=== PATIENT | female | born 2000 | race Caucasian/White ===

== ENCOUNTER 2024-05-06 06:19 | Outpatient (CLI) | payer BC ==
[~2024-05-06] VITALS: Ht 160 cm; Wt 65.0 kg
[~2024-05-06 06:19] MED LIST: MOTRIN 800800 MG/TAB PO; PERCOCET 325 MG1 TA2 PO
[2024-05-06] MEDS ORDERED: PRENATAL TABLET PO (06:41)
[2024-05-06] MEDS ORDERED: PRILOTC PO (06:41)
[2024-05-06] MEDS ORDERED: LR 1,000 ML IV PRN (06:45)
[2024-05-06 07:00] VITALS: BP 128/85; PULSE 80; TEMP 98.3
--- NOTE | 2024-05-06 07:00 | NUR ---
0625- Pt arrives on unit ambultory with spouse. Complains of contractions since yesterday around 1500. Pt complains of tightness, pelvic pressure with UCs. Reports cramping with some but not all. Pt denies LOF. Reports brown spotting from being checked in office on Saturday05/04/24. EFM and TOCO on and tracing well, O2 sat monitor on and tracing maternal HR. VSS. Assessment completed. POC discussed and questions answered.
[2024-05-06 07:08] VITALS: PULSE 74
--- NOTE | 2024-05-06 07:08 | NUR ---
0708- [facility] and TOCO off, Pt up to void. After, Pt requests to walk in hallway. Precautions given and Pt/spouse verbalize understanding.
--- NOTE | 2024-05-06 07:33 | NUR ---
1034- Pt back to room, sitting on side of bed. EFM and TOCO on, adjusted by this RN to tracing. Pt requests BB. 0744- Pt assisted onto ball. Plan to do vaginal exam in approx 10 min.
--- NOTE | 2024-05-06 08:00 | NUR ---
0749- Pt into bed for repeat vaginal exam. SVE unchanged. Discussed need to call Dr Vaughan, questions answered.
[2024-05-06] MEDS ORDERED: Acetaminophen 500 MG TAB PO ONE (08:15)
[2024-05-06 09:00] VITALS: BP 122/85; PULSE 85
--- NOTE | 2024-05-06 09:30 | NUR ---
[facility] not printing paperwork correctly, work order placed by staff. Discussed labor precautions, when to return to hospital, when to call with questions. Pt verbalizes understanding and denies questions. Pt ambulates off unit, with spouse, independently.
== END 2024-05-06 09:30 | disposition home or self-care (01) ==
LOC: LDRO 06:19
DX: Z34.93 Encounter for supervision of normal pregnancy, unspecified, third trimester (principal); Z3A.49 Greater than 42 weeks gestation of pregnancy

== ENCOUNTER 2024-05-07 09:14 | Outpatient (CLI) | payer BC ==
[~2024-05-07] VITALS: Ht 160 cm; Wt 65.0 kg
[2024-05-07 08:40] VITALS: BP 121/79; PULSE 89; TEMP 97.8
[~2024-05-07 09:14] MED LIST changes: +PRENATAL TABLET PO; +PRILOTC PO
--- NOTE | 2024-05-07 09:15 | NUR ---
PT AMBULATORY TO UNIT WITH SPOUSE. REPORTS CTX Q2-4 MINUTES APART, POSITIVE MOVEMENT, THOUGHT A TRICKLE OF FLUID THIS MORNING BUT HAS NOT FELT SINCE, NO VAGINAL BLEEDING. SVE AT THIS TIME /0. AMNITRACE NEGATIVE.
--- NOTE | 2024-05-07 09:30 | NUR ---
DISCUSSED IN DEPTH EARLY LABOR VS LABOR, RELAXATION TECHNIQUES, COMFORT MEASURES, WHEN TO RETURN TO HOSPITAL. PT VOICES UNDERSTANDING. DC HOME.
[2024-05-07] MEDS ORDERED: LR 1,000 ML IV PRN (09:45)
== END 2024-05-07 09:45 | disposition home or self-care (01) ==
LOC: LDRO 09:14
DX: Z34.83 Encounter for supervision of other normal pregnancy, third trimester (principal); Z3A.39 39 weeks gestation of pregnancy

== ENCOUNTER 2024-05-12 03:00 | Inpatient (IN) | payer BC ==
[2024-05-12] VITALS (23 sets, daily range): BP systolic 107–155; BP diastolic 62–94; PULSE 16–102; TEMP 97.9–98.6
[~2024-05-12] VITALS: Ht 160 cm; Wt 64.5 kg
--- NOTE | 2024-05-12 03:09 | NUR ---
Presents to L&D per wheelchair, visibly uncomfortable, breathing through contractions, accompanied by significant other.
[2024-05-12] MEDS ORDERED: LR 1,000 ML IV SCH (03:30)
[2024-05-12 03:36] LABS: BASO # 0.1 K/mm3 (0.0-0.2); BASO % 0.3 % (0.0-2.0); EOS # 0.1 K/mm3 (0.0-0.7); EOS % 0.8 % (0.0-4.0); GRAN # 10.6 K/mm3 (1.4-6.5); GRAN % 70.2 % (42.2-75.2); HEMOGLOBIN 11.4 g/dl (12.5-16.0); LYMPH # 3.4 K/mm3 (1.2-3.4); LYMPH % 22.3 % (20.0-51.0); MEAN CELL VOLUME 83 fl (80.0-100.0); MEAN CORPUSCULAR HEMOGLOBIN 27 pg (27-31); MEAN CORPUSCULAR HGB CONC 32 g/dl (33.0-37.0); MEAN PLATELET VOLUME 12.1 fl (7.4-10.4); MONO # 0.9 K/mm3 (0.1-0.6); MONO % 6.1 % (1.7-9.3); PLATELET COUNT 214 K/mm3 (130-400); RED BLOOD COUNT 4.29 M/mm3 (4.10-5.30); REDCELL DISTRIBUTION WIDTH-CV 15.2 % (11.5-14.5)
[2024-05-12 03:38] LABS: HEMATOCRIT 35.5 % (37.0-47.0)
[2024-05-12] MEDS ORDERED: ROPivacaine PF 0.2% 200 ML IV ONE (03:39)
--- NOTE | 2024-05-12 03:40 | NUR ---
Sitting upright at side of bed, bent over at waist. Difficulty tracing FHT while in this position, hand holding US.
--- NOTE | 2024-05-12 03:58 | NUR ---
Test dose administered by [employer]ELOPER. No adverse reactions noted. Tolerates procedure well.
[2024-05-12] MEDS ORDERED: diphenhydrAMINE 50 MG/ML 1 ML VIAL IV PRN (04:15)
[2024-05-12] MEDS ORDERED: Ondansetron 4 MG/2 ML VIAL IV PRN (04:15)
[2024-05-12] MEDS ORDERED: diphenhydrAMINE 25 MG CAP PO PRN (04:15)
[2024-05-12] MEDS ORDERED: ePHEDrine 50 MG/10 ML VIAL IV PRN (04:15)
[2024-05-12] MEDS ORDERED: Naloxone 0.4 MG/ML VIAL IV PRN ×2 (04:15→10:15)
--- NOTE | 2024-05-12 06:30 | NUR ---
THIS RN ASSISTS PT CHANGE IN POSITION, DIFFICULT TO TRACE FHR, PT VS STABLE, AWAKE AND ALERT X3, PT REPORTS FEELING PRESSURE ON HER LEFT LOWER ABDOMEN. PT POSITION CHANGED TO LEFT LATERAL WITH RIGHT LEG IN STIRRUP. 0635 PT REPORTS BEING UMCOMFORTABLE, POSITION CHANGED TO RAKAN/CHAIR. PT REPORTS STILL FEELING PRESSURE ON HER LEFT LOWER ABDOMEN AND HIP BUT "MORE BEARABLE NOW." EFM CAT 1, PT VS STABLE
--- NOTE | 2024-05-12 07:30 | NUR ---
[id number] UNABLE TO TRACE PT VS DUE TO PT BODY SHAKES, THIS RN REMAINS AT PT BEDSIDE DURING THIS TIME. PT AWAKE AND ALERT X3, PT REPORTS NOT FEELING DISSY OR NAUSEOUS, JUST PRESSURE FROM CONTRACTIONS. PT SPOUSE SUPPORTIVE AT BEDSIDE.
--- NOTE | 2024-05-12 08:53 | NUR ---
0730 SVE 10/100/+1 PER PCR.DABBET, EFM CAT 1. , GEM SETTER DR, AND NOTIFIED OF PT COMPLETE EXAM. PER ORDERS, PT CAN LABOR DOWN AND LET INFANT PASSIVELY DECEND. PT VERBALLY UNDERSTANDING AND COACHED THROUGH BREATHING WITH CONTRACTIONS. PT AND PT SPOUSE VERBALLY UNDERSTANDING OF LABOR PLANS. PT AWAKE AND ALERT X3, PT REPORTS FEELING PRESSURE WITH CONTRACTIONS BUT NO PAIN, PT SHAKING AND DIFFICULT TO TRACE VS. THIS RN REMAINS WITH PT AT BEDSIDE. 0802 AT PT BEDSIDE FOR SVE 10/100/+2, ORDERS TO CONTINUE TO LET INFANT PASSIVELY DECEND AND DELAY PUSHING CONTINUED, NOTIFIED. ROOM SET FOR DELIVERY AND NURSERY NURSE AND CHARGE NURSE NOTIFIED. 0842 AT PT BEDSIDE, BED SET FOR DELIVERY, NURSERY AND CHARGE NURSE AT PT BEDSIDE FOR DELIVERY. PT BEGINS PUSHING EFFECTIVELY, EFM CAT 1, PT AWAKE AND ALERT X3, UNABLE TO TRACE PT VS DUE TO PT SHAKING AND MOVEMENT. THIS RN REMAINS AT PT BEDSIDE. 0853 OF VIABLE FEMALE INFANT PER , CORD CLAMPED AND CUT PER PT SPOUSE, PLACED ON MATERNAL CHEST AND BABY CARE ASSUMED OVER TO NURSERY NURSE. 0856 OF PLACENTA PER , 2ND DEGREE TEAR AND RIGHT LATERAL LABIAL LACERATION REPAIR BEGUN. PT AWAKE AND ALERT X3, DIFFICULT TO TRACE PT VS DUE TO SHAKING AND PT MOVEMENT. PITOCIN BEGAN, FUNDUS FIRM AT UMBILICUS, SMALL AMOUNT OF LOCHIA, NO CLOTS. PT NOT REPORTING PAIN 0910 PT ROOM CLEANED AFTER DELIVERY, PT REPOSITIONED AND ICE PACK PAD PLACED ON PT PERINEUM, FUNDUS FIRM AT UMBILICUS, SCANT LOCHIA, NO CLOTS. PT AWAKE AND ALERT X3, SPOUSE SUPPORTIVE AT BEDSIDE. PT REPORTS FEELING "CRAMPS" BUT DENIES PAIN.
[2024-05-12] MEDS ORDERED: Magnes Hydrox (MOM) 80 MG/ML 30 ML CUP PO PRN (09:45)
[2024-05-12] MEDS ORDERED: Loratadine 10 MG TAB PO PRN (09:45)
[2024-05-12] MEDS ORDERED: Acetaminophen 500 MG TAB PO SCH (10:15)
[2024-05-12] MEDS ORDERED: Witch Hazel 50% Pads Bulk TUB TP PRN (10:15)
[2024-05-12] MEDS ORDERED: Measles/Mumps/Rubella Virus Vaccine Live w Diluent 0.5 ML VIAL SQ SCH (10:15)
[2024-05-12] MEDS ORDERED: Phenylephrine/Mineral Oil/Petrolatum 57 GM TUBE RC PRN (10:15)
[2024-05-12] MEDS ORDERED: oxyCODONE 5 MG TAB PO PRN (10:15)
[2024-05-12] MEDS ORDERED: Mag/Al Hydrox/Simeth Susp 30 ML CUP PO PRN (10:15)
[2024-05-12] MEDS ORDERED: Ibuprofen 800 MG TAB PO SCH (10:15)
--- NOTE | 2024-05-12 12:15 | NUR ---
1200 PT ABLE TO BILATERALLY LIFT LEGS OFF BED IN LABOR AND DELIVERY ROOM, PT ALSO REQUESTING TO BE MOVED TO UNIT. PT VS STABLE, FUNDUS FIRM AT UMBILICUS, SCANT LOCHIA, NO CLOTS. THIS RN ASSISTS PT TO TURN AND DANGLE LEGS AT EDGE OF BED. PT REPORTS NOT FEELING DISSY OR NAUSEOUS AND STEADY WHILE DANGLING. THIS RN THEN REMOVES CAPPED EPIDURAL CATHETER, TIP IN TACT AND NO ABNORMAL VISUAL SIGNS, PT REPORTS "FEELING GOOD." PT THEN ASSISTED ON [place] STEADY TO BATHROOM, PT VOIDED AND CLEANED WITH NEW GOWN. PT REPORTS NOT FEELING DISSY OR NAUSEOUS, AWAKE AND ALERT X3. SCANT LOCHIA DURING TRANSFER TO BATHROOM, NO CLOTS, FUNDUS FIRM AT UMBILICUS. 1215 PT TRANSFERED TO ROOM VIA SARASTEADY, PLACED IN BED. PT SPOUSE FOLLOWS WITH IN CRIB DURING TRANSFER. PT REPORTS "SOME DISCOMFORT BUT NOT HORRIBLE," AT 3/10 PAIN LEVEL. PT REPOSITIONED COMFORTABLY AND THIS RN ORIENTS PT AND PT SPOUSE TO ROOM AND EDUCATION PACKET. PLAN OF CARE DISCUSSED AND PT AND SPOUSE VERBALLY UNDERSTANDING. PT VS STABLE, FUNDUS FIRM AT UMBILICUS, SCANT LOCHIA, NO CLOTS. PT AWAKE AND ALERT X3.
[2024-05-12] MEDS ORDERED: Sennosides/Docusate 8.6-50 MG TAB PO SCH (17:00)
[2024-05-12] MEDS ORDERED: Rho(D) Imm Globulin 1,500 UNITS (300 MCG)/2 ML SYRINGE IV\\IM SCH (18:00)
[2024-05-12] MEDS ORDERED: traZODone 50 MG TAB PO PRN (21:00)
[2024-05-13 01:00] VITALS: BP 115/78; PULSE 80; TEMP 98
[2024-05-13 04:45] VITALS: BP 112/69; PULSE 70; TEMP 98.1
--- NOTE | 2024-05-13 06:37 | NUR ---
Report received from off going RN, Catherine Garcia. Care taken over by this RN.
[2024-05-13 07:00] VITALS: BP 116/73; PULSE 66; TEMP 98
--- NOTE | 2024-05-13 09:10 | NUR ---
Initial visit; Parents thanked [employer] for offering congratulations and God's blessings for the of their daughter. [employer] Teacher thanked family for choosing [facility] and was happy to hear their experience here has gone well.
== END 2024-05-13 15:40 | disposition home or self-care (01) | DRG 807 ==
LOC: LDRO 03:00 → LDR 03:25 → OB 12:15
PROVIDERS: Obstetrics & Gynecology; ADMIT Obstetrics & Gynecology
PROC: 10E0XZZ Delivery of Products of Conception, External Approach (ICD-10-PCS; principal; 2024-05-12)
PROC: 0KQM0ZZ Repair Perineum Muscle, Open Approach (ICD-10-PCS; 2024-05-12)
PROC: 0UQMXZZ Repair Vulva, External Approach (ICD-10-PCS; 2024-05-12)
DX: O99.62 Diseases of the digestive system complicating childbirth (principal); Z37.0 Single live birth; K21.9 Gastro-esophageal reflux disease without esophagitis; Z3A.39 39 weeks gestation of pregnancy; O69.81X0 Labor and delivery complicated by cord around neck, without compression, not applicable or unspecified; O70.1 Second degree perineal laceration during delivery
CPT/HCPCS: J2791; J2795; J7120